=== PATIENT | male | born 1980 | race African-American/Black ===

== ENCOUNTER 2017-02-07 21:38 | Emergency (ER) | payer BC ==
[~2017-02-07] VITALS: Ht 180.3 cm; Wt 75.0 kg
[2017-02-07 21:40] VITALS: BP 132/74; PULSE 70; RESP 14; TEMP 98.5; O2SAT 98
--- NOTE | 2017-02-07 22:15 | PD ---
Physical Exam Date Seen by Provider: Feb 07, 2017 Time Seen by Provider: 22:13 Data Data Last Documented VS Vital Signs Date Time Temp Pulse Resp B/P Pulse Ox O2 Delivery O2 Flow Rate FiO2 02/07/17 21:40 98.5 70 14 132/74 98 Room Air [facility] Supervised Visit with [facility]: No Narrative Course 37 YO M with complaint of pain and swelling of the right arm and left leg. Noticed this AM. Patient states " I think I got bit by a spider." Endorses "sweats" last night. ---N/V. Vitals reviewed. Patient seen in triage, awaiting bed placement. Scripts No Active Prescriptions or Reported Meds Tati Nur Feb 07, 2017 22:14
[2017-02-07] MEDS ORDERED: BACT800T5 PO (23:00)
[2017-02-07] MEDS ORDERED: SULFAMETHOXAZOLE-TRIMETHOPRIM DS 800-160 MG TAB PO ONE (23:00)
--- NOTE | 2017-02-07 23:05 | PD ---
HPI Chief Complaint: Bite or Sting Time Seen by Provider: 23:02 Travel History International Travel<30 days: No Contact w/Intl Traveler<30days: No Traveled to known affect area: No History of Present Illness HPI 37 year old black male presents to emergency department with a one-day history of skin infection. He states that he has a few bumps on his left forearm and a few on his left leg. He states that he has never had these in the past. He denies any fever or chills. He does states that he had felt sweaty today. Up- to-date with immunizations. Symptoms are mild. PFSH Past Medical History Medical History: Denies Significant Hx Diminished Hearing: No Immunizations Current: Yes Tetanus Vaccination: < 5 Years Past Surgical History Surgical History: No Previous Surgery Social History Alcohol Use: Yes (OCC) Tobacco Use: Yes Substance Use: No Allergies-Medications (Allergen,Severity, Reaction): Coded Allergies: No Known Allergies (Unverified , 02/07/17) Reported Meds & Prescriptions Reported Meds & Active Scripts Active No Active Prescriptions or Reported Medications Review of Systems Except as stated in HPI: all other systems reviewed are Neg Skin: Positive Rash, Positive Lumps Physical Exam Narrative GENERAL: This is a well-nourished, well-developed patient, in no apparent distress. SKIN: Patient has a few follicular lesions on the left forearm and the left lower leg. These are approximately 2-3 mm. Mild erythema, mildly tender. Warm and dry. HEAD: Atraumatic. Normocephalic. EYES: PERRL, EOMI, no discharge or injection. No scleral icterus. EARS: Clear NOSE: Nasal turbinates appear normal. THROAT: Mucosa pink and moist. Airway patent. NECK: Trachea midline. supple, moves head freely. LUNGS: Clear to auscultation. CV: Regular in rhythm. ABDOMEN: Soft nontender. EXT: No clubbing cyanosis or edema. Data Data Last Documented VS Vital Signs Date Time Temp Pulse Resp B/P Pulse Ox O2 Delivery O2 Flow Rate FiO2 02/07/17 21:40 98.5 70 14 132/74 98 Room Air Orders Sulfamet-Trimeth Ds 800-160 Mg (Bactrim (02/07/17 23:00) MDM Medical Decision Making Medical Screen Exam Complete: Yes Emergency Medical Condition: Yes Medical Record Reviewed: Yes Differential Diagnosis MDM: High Differential diagnoses: Abscess, folliculitis, cellulitis, lymphangitis, abrasion, contact dermatitis Narrative Course This is folliculitis. Patient's given Bactrim DS. Diagnosis Primary Impression: Folliculitis Patient Instructions: General Instructions Additional Instructions: Rest. Elevation. keep clean and dry. Warm compresses. Bactrim DS Daily wound care with soap, water and Neosporin. Three Advil every 6 hours. Doxycycline, Septra DS, and Lortab. Follow-up with a primary care doctor in one week. Return to the ER for any problems. Med/Other Pt SpecificInfo: Prescription(s) given Scripts Sulfamethoxazole-Trimethoprim (Bactrim DS)800-160 Mg Tab1 Tab PO BID #20 TAB Prov:Lisa Ireland DO 02/07/17 Disposition: 01 DISCHARGE HOME Condition: Stable Shon Marie Feb 07, 2017 23:05
== END 2017-02-07 23:19 | disposition home or self-care (01) ==
LOC: NEPD 21:38
DX: L73.9 Follicular disorder, unspecified (principal); Z72.0 Tobacco use
CPT/HCPCS: 99283